=== PATIENT | male | born 1950 | race Caucasian/White ===

== ENCOUNTER 2017-10-07 09:00 | Outpatient (RCR) | payer MEDICARE, OTHER ==
[2017-07-11 11:07] VITALS: BP 130/86
[2017-07-11 11:08] VITALS: BP 122/80
--- NOTE | 2017-07-11 11:48 | CARDIAC REHAB PLAN OF CARE ---
Physician: Joslyn Marsh BANKRUPTCY LAW SPECIALIST Patient is being seen: Gerald Teresa Medical Diagnosis: Old AL Date of Initial Evaluation: July 11, 2017 SHORT TERM GOALS Short Term Goals Due Date: 08/10/17 Short Term Goals: 67 year old male phase II patient comes to cardiac rehab after suffering a TIA. Patient also has a history of two prior AL's (1998 & 2007) with one stent placed each time. Patient is 6'0", 210 pounds and has recently been diagnosed a pre-diabetic, other health history includes hypertension and hyperlipidemia diagnosed in 1998. Orthopedically the patient does not have any restriction to any of the exercise required for cardiac rehab although the patient has a left hip replacement. Goals established for this patient are to achieve 150 minutes each week of cardio exercise at a moderate level (3.0-6.0 Mets), followed by weight resistance at least twice a week. Patient will need to follow the DASH diet or Mediterranean Diet with proper portions. Short Term Goals Met: Short Term Goals Not Met Due To: PRINCIPAL ARCHITECTURAL FIRM GOALS Arabic Translator Goal Due Date: 09/10/17 Arabic Translator Goals: prison goals for patient are to remain consistent with cardio exercise each week, along with weight resistance. Patient also needs to remain consistent with healthy meal choices. [facility] Goals Met: Arabic Translator Goals Not Met Due To: PATIENT'S GOALS Patient Goals Due Date: 08/10/17 Patient Goals: Patient goals are to improve overall health and to decrease chances of future AL or Stroke. Patient Goals Met: Patient Goals Not Met Due To: Cardiac Rehabilitation Plan of Care Comment: Cardiac rehab staff will monitor, record, and evaluate vitals, ECG, and exercise results to provide the best plan of care for the patient throughout the 36 visit phase II program. CR staff will educate and motivate the patient during visits for rehab. SHANTA
[2017-07-13 12:57] VITALS: BP 136/84
[2017-07-13 12:58] VITALS: BP 128/78
[2017-07-25 13:17] VITALS: BP_SYST 120; BP_SYST 122; BP_DIAS 64; BP_DIAS 80
[2017-07-27 13:00] VITALS: BP 126/84
[2017-07-27 13:02] VITALS: BP 118/82
[2017-07-29 17:27] VITALS: BP 120/80
[2017-07-29 17:28] VITALS: BP 124/84
[2017-08-01 18:09] VITALS: BP 138/82
[2017-08-01 18:10] VITALS: BP 122/82
[2017-08-03 13:18] VITALS: BP_SYST 130; BP_SYST 132; BP_DIAS 68; BP_DIAS 84
[2017-08-12 13:39] VITALS: BP 122/72
[2017-08-12 13:40] VITALS: BP 114/76
--- NOTE | 2017-08-12 17:30 | CARDIAC REHAB PLAN OF CARE ---
Physician: Joslyn BAGLEY Patient is being seen: Gerald Moore Medical Diagnosis: VT, Stent x 2 Date of Initial Evaluation: 07/11/2017 SHORT TERM GOALS Short Term Goals Due Date: 09/12/17 Short Term Goals: 67 year old male phase II patient comes to cardiac rehab after suffering a TIA. Patient also has a history of two prior VT's (1998 & 2007) with one stent placed each time. Patient is 6'0", 210 pounds and has recently been diagnosed a pre-diabetic, other health history includes hypertension and hyperlipidemia diagnosed in 1998. Orthopedically the patient does not have any restriction to any of the exercise required for cardiac rehab although the patient has a left hip replacement. Goals established for this patient are to achieve 150 minutes each week of cardio exercise at a moderate level (3.0-6.0 Mets), followed by weight resistance at least twice a week. Patient will need to follow the DASH diet or Mediterranean Diet with proper portions. Short Term Goals Met: Patient has made 9 visits for cardiac rehab and tolerates 35-40 minutes of moderate level cardio. Patient also completes an 8 pound dumbbell upper body workout. During exercise SPO2 levels are maintained in the 90's on room air, and the homoeopath shows a NSR-ST with an occasional PVC and rates of 97-109. 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 Patient will continue to eat heart healthy meals and snacks, with portion control. Autopsy Pathologist Goals Met: Prison Goals Not Met Due To: PATIENT'S GOALS Patient Goals Due Date: 09/12/17 Patient Goals: Patient goals are to improve cardiac and overall health with exercise and diet changes. Patient wants to extend life and remain active. Patient Goals Met: Patient Goals Not Met Due To: Cardiac Rehabilitation Plan of Care Comment: Cardiac rehab staff will monitor, record, and evaluate vitals, ECG, and exercise results to provide the best plan of care for the patient during the 36 visit phase II program. CR staff will educate and motivate the patient during visits for rehab. SHANTA
[2017-08-22 13:24] VITALS: BP 142/84
[2017-08-22 13:25] VITALS: BP 132/82
[2017-08-24 13:25] VITALS: BP 142/66
[2017-08-24 13:26] VITALS: BP 122/76
[2017-08-26 17:59] VITALS: BP_SYST 132; BP_SYST 138; BP_DIAS 80; BP_DIAS 84
[2017-09-12 12:52] VITALS: BP 117/74
[2017-09-12 12:53] VITALS: BP 118/74
--- NOTE | 2017-09-12 13:20 | CARDIAC REHAB PLAN OF CARE ---
Physician: Joslyn BAGLEY Patient is being seen: Gerald Moore Medical Diagnosis: Old IL, & TIA, Stent x 2 Date of Initial Evaluation: 07/11/17 SHORT TERM GOALS Short Term Goals Due Date: 10/12/17 Short Term Goals: 67 year old male phase II patient comes to cardiac rehab after suffering a TIA. Patient also has a history of two prior IL's (1998 & 2007) with one stent placed each time. Patient is 6'0", 210 pounds and has recently been diagnosed a pre-diabetic, other health history includes hypertension and hyperlipidemia diagnosed in 1998. Orthopedically the patient does not have any restriction to any of the exercise required for cardiac rehab although the patient has a left hip replacement. Goals established for this patient are to achieve 150 minutes each week of cardio exercise at a moderate level (3.0-6.0 Mets), followed by weight resistance at least twice a week. Patient will need to follow the DASH diet or Mediterranean Diet with proper portions. Short Term Goals Met: Patient has made 14 visits for cardiac rehab and tolerates 30-45 minutes of a moderate level of cardio exercise along with weight resistance with 9 pound dumbbells. During exercise SPO2 levels are maintained in the 90's on room air and the satellite project site monitor shows a NSR-ST with an occasional PVC and rates of 90-109. 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 [facility] Goals Met: [facility] Goals Not Met Due To: PATIENT'S GOALS Patient Goals Due Date: 10/12/17 Patient Goals: Patient goals are to improve cardiac and overall healthy with consitent exercise, improved diet, and lose some weight. Patient Goals Met: Patient Goals Not Met Due To: Cardiac Rehabilitation Plan of Care Comment: Cardiac rehab staff will monitor, record and evaluate vitals, ECG, and exercise results to provide the best plan of care for the patient throughout the 36 visit phase II program. CR staff will motivate and educate the patient during visits for rehab. SHANTA
[2017-09-14 13:52] VITALS: BP 118/80
[2017-09-14 13:53] VITALS: BP 136/78
[2017-09-16 12:53] VITALS: BP 132/80
[2017-09-16 12:55] VITALS: BP 130/80
[2017-10-03 13:29] VITALS: BP 144/78
[2017-10-03 13:30] VITALS: BP 132/84
[2017-10-05 12:50] VITALS: BP 132/78
[2017-10-05 12:51] VITALS: BP 114/78
[~2017-10-07 09:00] MED LIST: ASPI81TA94 PO; ATR10 PO; CARV25TA77 PO; DOC100 PO; FLUT16SP19; LISI5TAB25 PO; OXYC1TAB54 PO; PANT40TA65 PO; PER PO; PHENA200 PO; TAM4 PO; TOLT4CAP13 PO
[2017-10-07 18:18] VITALS: BP 116/72
[2017-10-07 18:19] VITALS: BP 124/80
== END 2017-10-09 ==
LOC: CARD 09:00
PROVIDERS: ATTEND Nurse Practitioner Family
DX: I25.2 Old myocardial infarction (principal); I70.90 Unspecified atherosclerosis; E11.9 Type 2 diabetes mellitus without complications; I10 Essential (primary) hypertension; G45.9 Transient cerebral ischemic attack, unspecified; E78.5 Hyperlipidemia, unspecified; Z95.5 Presence of coronary angioplasty implant and graft; Z96.642 Presence of left artificial hip joint; Z86.73 Personal history of transient ischemic attack (TIA), and cerebral infarction without residual deficits
CPT/HCPCS: 93798

== ENCOUNTER → 2017-11-26 | Outpatient (CLI) | payer MEDICARE, OTHER ==
[2017-11-26 11:12] LABS: LDL CHOLESTEROL 66 mg/dl
== END ==
LOC: LAB 10:10
PROVIDERS: ATTEND Internal Medicine Cardiovascular Disease
DX: I25.10 Atherosclerotic heart disease of native coronary artery without angina pectoris (principal)
CPT/HCPCS: 36415; 82040; 82247; 82310; 82374; 82435; 82465; 82565; 82947; 83718; 84075; 84132; 84155; 84295; 84450; 84460; 84478; 84520

== ENCOUNTER → 2017-11-29 | Outpatient (CLI) | payer MEDICARE, OTHER ==
--- NOTE | 2017-11-29 11:51 | EKG ---
FACILITY: PATIENT NAME: DAVID SHAFFER : [id number] MR: [id number] V: [id number] EXAM DATE: ORDERING PHYSICIAN: NAHID GARG TECHNOLOGIST: FABIEN Test Reason : I10, I49.9 Blood Pressure : / mmHG Vent. Rate : 054 BPM Atrial Rate : 054 BPM P-R Int : 170 ms QRS Dur : 090 ms QT Int : 400 ms P-R-T Axes : 065 003 034 degrees QTc Int : 379 ms Sinus bradycardia Possible left atrial enlargement Minimal voltage criteria for LVH, may be normal variant Hint of delta wave seen in limb leads Borderline ECG Confirmed by KARI CUELLAR ([id number]) on 11/29/2017 5:05:32 PM Referred By: BRITANY Confirmed By:KARI CUELLAR
== END ==
LOC: RESP 11:36
PROVIDERS: ATTEND Nurse Practitioner Family
DX: R94.31 Abnormal electrocardiogram [ECG] [EKG] (principal)
CPT/HCPCS: 36415; 82550; 93005

== ENCOUNTER 2018-03-28 12:14 | Outpatient (RCR) | payer MEDICARE, OTHER ==
[2018-03-28 12:57] LABS: LDL CHOLESTEROL 67 mg/dl
--- NOTE | 2018-03-29 10:36 | EKG ---
FACILITY: [facility] - [place] PATIENT NAME: DAVID SHAFFER : [id number] MR: [id number] V: [id number] EXAM DATE: ORDERING PHYSICIAN: ANGEL PITTS TECHNOLOGIST: NATE Test Reason : POST STRESS TEST Blood Pressure : / mmHG Vent. Rate : 069 BPM Atrial Rate : 069 BPM P-R Int : 172 ms QRS Dur : 096 ms QT Int : 386 ms P-R-T Axes : 054 -24 -07 degrees QTc Int : 413 ms Normal sinus rhythm Nonspecific ST abnormality Abnormal ECG When compared with ECG of 29-NOV-2017 11:48, No significant change was found Confirmed by YUKO PARKER ([id number]) on 03/29/2018 11:26:37 AM Referred By: HONG Confirmed By:YUKO PARKER
--- NOTE | 2018-03-29 15:32 | RADIOLOGY IMAGING REPORT ---
FACILITY: [facility] - [place] PATIENT NAME: Albert Beaulieu : 1950 MR: [id number] V: [id number] EXAM DATE: ORDERING PHYSICIAN: MYKEL HOBBS TECHNOLOGIST: Location: [facility] [place] Patient: Albert Beaulieu : 1950 Visit/Account:[id number] Date of Sevice: 03/29/2018 EXAMINATION: Single Isotope SPECT Imaging with Exercise and Gated SPECT Imaging DATE OF EXAMINATION: 03/29/2018 DATE OF INTERPRETATION: 03/29/2018 REQUESTING PHYSICIAN: MYKEL HOBBS INDICATION: The patient is a 67-year-old male evaluated for CAD/angina. PROCEDURE: After informed consent the patient received an intravenous injection of 11.8 mCi of Tc-9 9m sestamibi followed at the appropriate time interval by rest imaging. The patient then exercised a ccording to the standard Robert protocol for 8:10 minutes achieving 9 METS. Resting heart rate was 61 bpm with a peak heart rate of 146 bpm which is 96 % of maximal predicted heart rate for age. Blood pressure at rest was 155 / 87; blood pressure during exercise was 216 / 89. There was no chest pain during exercise. Exercise was discontinued because of fatigue. Baseline EKG demonstrates normal si nus rhythm, left anterior fascicular block. There were no EKG changes of ischemia at peak exercise. Approximately one minute and 30 seconds prior to the termination of exercise, the patient received a n intravenous injection of 30.1 mCi of Tc-99m sestamibi followed by stress imaging. RAW DATA: Examination of the summed raw data revealed a good quality study. MYOCARDIAL PERFUSION: The tomographic images demonstrate normal perfusion, no evidence of infarct or ischemia. GATED IMAGES: The gated images demonstrate normal wall motion, ejection fraction 56% IMPRESSION: 1. Good quality study 2. Normal myocardial perfusion scan. 3. Normal LV systolic function; LVEF 56%. 4. Based on the results of this exam, the patient appears to be at low risk for future cardiovascular events but remains intermediate risk due to history of CAD. Report Dictated By: Logan Epstein at 03/29/2018 3:23 PM Report E-Signed By: Logan Epstein at 03/29/2018 3:27 PM WSN:[id number]
--- NOTE | 2018-03-30 17:02 | RT STRESS TEST REPORT ---
FACILITY: [facility] - [place] PATIENT NAME: DAVID SHAFFER : [id number] MR: [id number] V: [id number] EXAM DATE: ORDERING PHYSICIAN: MYKEL HOBBS TECHNOLOGIST: Vahid Acquisition Time: 2018-03-29 09:35:14 Total Exercise Time: 00:08:10 Test Indications: Screening for CAD Medications: See nuclear med sheet Protocol: HELENA 2 Max HR: 146 BPM 96% of Pred: 151 BPM Max BP: 216/089 mmHG Max Work Load: 10.1 METS No ischemic changes noted during the test He did have frequent PVCs during the test that resolved during the recovery R.A. O2 sats dropped to 85% and was placed on O2, 2 litres during the test that kept sats. above 88 % During recovery O2 sats improved to above 90% on R.A. Imp: No ischemic changes on the EKG, however had hypoxia and frequent PVCs during the test Consider Pulmonary evaluation Confirmed by ANGEL PITTS ([id number]) on 03/30/2018 5:02:07 PM Referred By: Overread By: ANGEL PITTS
== END 2018-05-02 ==
LOC: NUC 12:14 → EDSTATUS 03-29 09:00
PROVIDERS: ATTEND Internal Medicine Cardiovascular Disease
DX: I25.10 Atherosclerotic heart disease of native coronary artery without angina pectoris (principal); R94.31 Abnormal electrocardiogram [ECG] [EKG]; R09.02 Hypoxemia
CPT/HCPCS: 36415; 78452; 93005; 93017; A9500; 82040; 82247; 82310; 82374; 82435; 82465; 82565; 82947; 83718; 84075; 84132; 84155; 84295; 84450; 84460; 84478; 84520

== ENCOUNTER → 2018-05-28 | Outpatient (CLI) | payer MEDICARE, OTHER ==
[2018-05-28 10:39] LABS: PLATELET COUNT, AUTOMATED 153 K/uL (150-450)
[2018-05-28 11:01] LABS: LDL CHOLESTEROL 66 mg/dl
== END ==
LOC: LAB 10:24
PROVIDERS: ATTEND Nurse Practitioner Family
DX: I10 Essential (primary) hypertension (principal); R73.01 Impaired fasting glucose; E78.2 Mixed hyperlipidemia; I25.2 Old myocardial infarction; Z98.61 Coronary angioplasty status
CPT/HCPCS: 36415; 82040; 82247; 82310; 82374; 82435; 82465; 82565; 82947; 83036; 83718; 84075; 84132; 84155; 84295; 84450; 84460; 84478; 84520; 85025

== ENCOUNTER → 2018-08-14 | Outpatient (CLI) | payer MEDICARE, OTHER | LOC: LAB 16:18 | PROVIDERS: ATTEND Anesthesiology | DX: Z01.812 Encounter for preprocedural laboratory examination (principal); M25.561 Pain in right knee | CPT/HCPCS: 81001 ==

== ENCOUNTER 2018-09-01 00:33 | Observation (INO) | payer MEDICARE, OTHER ==
[2018-08-31 14:22] LABS: INR 1.01
--- NOTE | 2018-08-31 16:39 | RADIOLOGY IMAGING REPORT ---
FACILITY: [facility] PATIENT NAME: Albert Beaulieu : 1950 MR: [id number] V: [id number] EXAM DATE: ORDERING PHYSICIAN: ELISABETH QUEVEDO TECHNOLOGIST: Location: [facility] Patient: Albert Beaulieu : 1950 Visit/Account:[id number] Date of Sevice: 08/30/2018 Study: LEGS BILAT STANDING HIPS-ANKLE Indication: Assess leg length Comparison study: None available Findings: Upright plain films of the lower extremities with a superimposed ruler demonstrates the pat ient is status post left total hip replacement. The left femur measures 51.67 cm as measured from the top of the total hip arthroplasty acetabular co mponent to the medial femoral condyle articular surface. The left tibia measures 40.25 cm from the medial tibial plateau to the tibial plafond and. The left lower extremity measures 92.27 cm as measured from the top of the left hip acetabular compon ent to the tibial plafond. The right femur measures 51.34 cm from the superior aspect of the femoral head to the medial femoral condyle articular surface. The right tibia measures 40.12 cm from the medial tibial plateau to the tibial plafond. The right lower extremity measures 91.59 cm from the top of the femoral head to the tibial plafond. There is no evidence of soft tissue abnormality. There is no evidence of acute bony abnormality. IMPRESSION: Leg length measurements as described above. Report Dictated By: Robert Brown at 08/31/2018 4:23 PM Report E-Signed By: Robert Brown at 08/31/2018 4:33 PM WSN:[id number]
[2018-09-01] VITALS (12 sets, daily range): BP systolic 117–142; BP diastolic 73–90
[~2018-09-01] VITALS: Ht 180.3 cm; Wt 102.1 kg
[~2018-09-01 00:33] MED LIST changes: +AMLO-125 PO; +ASPI-1471 PO; +ATOR20TA22 PO; +CHOL10005 PO; +DOXA4TAB58 PO; +LISI-362 PO; +UBID100C48 PO
[2018-09-01] MEDS ORDERED: fentaNYL CITR 250 MCG/5 ML AMP ONE (08:44)
[2018-09-01] MEDS ORDERED: ONDANSETRON 4 MG/2 ML VIAL ONE (08:45)
[2018-09-01] MEDS ORDERED: LIDOCAINE MPF 1% 5 ML VIAL ONE ×2 (08:45→10:26)
[2018-09-01] MEDS ORDERED: DEXAMETHASONE SOD 4 MG/ML VIAL ONE (08:45)
[2018-09-01] MEDS ORDERED: PROPOFOL EMUL(*) 10MG/ML 20 ML 20 ML ONE (08:45)
[2018-09-01] MEDS ORDERED: KETAMINE HCL 200 MG/20 ML MDV ONE (08:48)
[2018-09-01] MEDS ORDERED: SUGAMMADEX SOD 200 MG/2 ML SDV ONE (10:07)
[2018-09-01] MEDS ORDERED: CELECOXIB 200 MG CAP PO ONE (10:15)
[2018-09-01] MEDS ORDERED: VANCOMYCIN(*) 1 GM VIAL 1 GM, VANCOMYCIN (*) 0.5 GM VIAL 0.5 GM in NS(*) 0.9% 250 ML BA... IVPB ONE (10:15)
[2018-09-01] MEDS ORDERED: LIDOCAINE/SOD BICARB 8.4% SYR ID ONE (10:15)
[2018-09-01] MEDS ORDERED: ROPIVACAINE/EPI/CLONIDINE/KET 50 ML SYRINGE INJ ONE (10:15)
[2018-09-01] MEDS ORDERED: TRANEXAMIC AC 1000 MG/10ML SDV 1,000 MG in DEXTROSE 5% 50 ML BAG 50 ML IV ONE (10:15)
[2018-09-01] MEDS ORDERED: MIDAZOLAM 2 MG/2 ML VIAL IVP PRN (10:15)
[2018-09-01] MEDS ORDERED: PREGABALIN 75 MG CAPSULE PO ONE (10:15)
[2018-09-01] MEDS ORDERED: NORMOSOL R SOLN(*) 1000 ML BAG 1,000 ML IV PRN (10:15)
[2018-09-01] MEDS ORDERED: ACETAMINOPHEN 500 MG TAB PO ONE (10:15)
[2018-09-01] MEDS ORDERED: FAMOTIDINE 20 MG TAB PO ONE (10:15)
[2018-09-01] MEDS ORDERED: EPINEPHrine HCL 1 MG/ML AMP ONE (10:20)
[2018-09-01] MEDS ORDERED: ROPIVACAINE 0.5% 20 ML VIAL ONE (10:21)
[2018-09-01] MEDS ORDERED: NS 0.9% 20 ML SDV 40 ML ONE (10:21)
[2018-09-01] MEDS ORDERED: LIDOCAINE 2% JELLY 5 ML TUBE ONE (11:45)
[2018-09-01] MEDS ORDERED: ePHEDrine 25 MG/5 ML DISP.SYR IVP ONE (12:28)
[2018-09-01] MEDS ORDERED: MORPHINE SULFATE 30 MG PCA IV PRN (14:55)
[2018-09-01] MEDS ORDERED: PCA LOCKBOX KEYS XX PRN (14:55)
[2018-09-01] MEDS ORDERED: PROMETHAZINE 25 MG/ML 1 ML AMP IVP PRN (14:55)
[2018-09-01] MEDS ORDERED: MAGNESIUM CITRATE 300 ML BTL PO PRN (14:55)
[2018-09-01] MEDS ORDERED: FLUSH 10 ML SYR IVP PRN (14:55)
[2018-09-01] MEDS ORDERED: diphenhydrAMINE 25 MG CAP PO PRN (14:55)
[2018-09-01] MEDS ORDERED: KCL/D5LR 20 MEQ/1000 ML PREMIX 1,000 ML IV PRN (14:55)
[2018-09-01] MEDS ORDERED: ACETAMINOPHEN 500 MG TAB PO PRN (14:55)
[2018-09-01] MEDS ORDERED: ONDANSETRON 4 MG/2 ML VIAL IVP PRN (14:55)
[2018-09-01] MEDS ORDERED: NALOXONE HCL 0.4 MG/ML VIAL IVP PRN (14:55)
[2018-09-01] MEDS ORDERED: CHOL500051 PO (15:57)
--- NOTE | 2018-09-01 16:21 | Hospitalist Consultation ---
History of Present Illness Requesting Physician Dr. George Reason for Consult Medical Management Chief Complaint s/p right unicompartmental knee replacement History of Present Illness He was admitted s/p right unicompartmental knee replacement. It is reported the surgery went well and without complication. History Problems: (1) History of MS (myocardial infarction) Status: Resolved Comment: 2007 (2) CAD (coronary artery disease) Status: Chronic (3) GERD (gastroesophageal reflux disease) Status: Chronic (4) Hyperlipidemia Status: Chronic (5) Hypertension Status: Chronic (6) Transient ischemic attack Status: Resolved Comment: 06/2017 Home Meds Reported Medications Cholecalciferol (Vitamin D3) (Vitamin D) 5,000 Unit Capsule, 5000 UNIT PO DAILY 09/01/18 Ubidecarenone (COQ-10) 100 Mg Capsule, 100 MG PO QAM, CAPSULE 08/24/18 Doxazosin Mesylate (DOXAZOSIN MESYLATE) 4 Mg Tablet, 4 MG PO QAM 08/24/18 Atorvastatin Calcium (LIPITOR) 20 Mg Tablet, 1 TAB PO QAM, TAB 08/24/18 Amlodipine Besylate (AMLODIPINE BESYLATE) 5 Mg Tablet, 1 TAB PO QAM, TAB 08/24/18 Aspirin (ASPIR 81) 81 Mg Tablet.dr, 81 MG PO BID, TAB 08/24/18 Lisinopril (LISINOPRIL) 10 Mg Tablet, 10 MG PO BID, TAB 08/24/18 Discontinued Reported Medications Cholecalciferol (Vitamin D3) (VITAMIN D3) 1,000 Unit Tablet, 5000 UNIT PO QAM, TAB 08/24/18 Allergies: Coded Allergies: hydrochlorothiazide (Verified Allergy, Mild, rash, 08/24/18) Patient History: FH: Alzheimers disease FATHER, FH: prostate cancer FATHER, FH: stroke MOTHER, FHx: coronary artery disease MOTHER, Hx Smoking: Yes (1 ppd for 15 years quit age 38) Smoking Status: Former Smoker Caffeine Intake: Tea Caffeine/Cups Per Day: 2 Hx Alcohol Use: Yes Hx Substance Use Disorder: No Social Drug Use: Never Review of Systems All Systems Reviewed/Normal: Yes, Except as Noted Exam Vital Signs Vital Signs Date Time Temp Pulse Resp B/P (MAP) Pulse Ox O2 Delivery O2 Flow Rate FiO2 09/01/18 15:40 97.7 62 12 130/84 (99) 92 Nasal Cannula 4.0 General Appearance: Alert, Awake, No Acute Distress, Afebrile Neuro: No Gross deficits Cardiovascular: Regular Rate and Rhythm Respiratory: No Respiratory Distress, Clear to Auscultation GI: Abd Soft and Non-Tender Psych: Alert & Oriented X3, Appropriate Mood & Affect Medical Decision Making Data Points Result Diagram: 09/01/18 1499 Assessment and Plan Problems: (1) S/P right unicompartmental knee replacement Status: Acute Assessment & Plan: Followed by Dr. George. He will be placed on Aspirin for DVT prophylaxis. He has no history of DVT or PE. (2) CAD (coronary artery disease) Status: Chronic Assessment & Plan: He is on chronic treatment with baby aspirin. This will be held while on full dose aspirin. He has history of two cardiac stents. Had cardiac clearance prior to surgery. (3) Hypertension Status: Chronic Assessment & Plan: He is on chronic treatment with Lisinopril, Amlodipine and Doxazosin. The Lisinopril and Amlodipine have been restarted with hold parameters. (4) Hyperlipidemia Status: Chronic Assessment & Plan: He is on chronic treatment with Atorvastatin. (5) Transient ischemic attack Status: Resolved Assessment & Plan: In 2017. Resolved. No deficits. (6) History of MS (myocardial infarction) Status: Resolved Venous Thromboembolism Antithrombotics Is Pt On Any Antithrombotics?: No JENNIFER SOSA Sep 01, 2018 16:21
--- NOTE | 2018-09-01 17:00 | NUR ---
Physical Therapy Impression PT eval completed. Pt tolerated ther ex in supine, followed by transfer trng and ambulation to/from BR with VS in safe range and good pain management reported. Pt returned to bed with SBA and placed in CPM with CGA. Pt educated on self progression of flexion as tolerated and currently at 0-40 degrees upon PT completion. Physical Therapy Goals 1. Pt to be modified indep with all bed mobility and supine to/from sit transfers 2. Pt to be modified indep with all sit to/from stand transfers 3. Pt to ambulate 100' with least restrictive device and modified indep/SBA 4. Pt to areli up/down step with rail x 2 and SBA/Modified indep Patient's Goals
--- NOTE | 2018-09-01 17:25 | RADIOLOGY IMAGING REPORT ---
FACILITY: [facility] PATIENT NAME: Albert Beaulieu : 1950 MR: [id number] V: [id number] EXAM DATE: ORDERING PHYSICIAN: ELISABETH QUEVEDO TECHNOLOGIST: [place] [facility] [place] Patient: Albert Beaulieu : 1950 Visit/Account:[id number] Date of Sevice: 09/01/2018 Study: KNEE LIMITED RIGHT Indication: Postop Comparison study: None available Findings: AP and lateral views of the right knee demonstrates the patient is status post replacement of the medial femoral tibial articulation of the right knee. There are postsurgical changes present. There is approximate anatomic alignment. There is no evidence of acute bony abnormality. The metallic components of the partial knee replacement are unremarkable in appearance. IMPRESSION: Status post replacement of the medial femoral tibial articulation of the right knee. Report Dictated By: Robert Brown at 09/01/2018 5:20 PM Report E-Signed By: Robert Brown at 09/01/2018 5:22 PM WSN:[id number]
--- NOTE | 2018-09-01 19:58 | OPERATIVE REPORT 1 ---
EVENT DATE: September 01, 2018 SURGEON: Emmett George MD ANESTHESIOLOGIST: Louie Umaña MD ANESTHESIA: General plus adductor canal and iPACK block. ACCOUNTING CONSULTANT: Iker Liz PA-C PREOPERATIVE DIAGNOSIS Right knee medial compartment arthritis. POSTOPERATIVE DIAGNOSIS Right knee medial compartment arthritis. PROCEDURE PERFORMED Right medial compartment arthroplasty (40711). ESTIMATED BLOOD LOSS Minimal. INTRAVENOUS FLUIDS Crystalloid 1600, no colloid. TOURNIQUET TIME 73 SPECIMENS No specimens. COMPLICATIONS No complications. IMPLANTS USED [place] large femoral component with a size E right tibial component and a size 3 insert. SUMMARY OF PROCEDURE The patient was brought into the operating room and placed on the OR table in the supine position. Under light sedation, he was given his adductor canal and iPACK block by Dr. Umaña under ultrasound guidance. He was then given a light general anesthetic. His right lower extremity was prepped and draped in the usual sterile fashion using the thigh harris in the abducted position. We exsanguinated the limb and inflated the tourniquet. A medial parapatellar incision was made, deepened through skin and subcutaneous tissue. I then incised the capsule, and the fluid was clear. There was actually fairly small amounts of fluid. We exposed the tibial metaphyseal flare anteriorly and removed the anterior portion of the medial meniscus as well as some of the fat pad. I inspected the lateral compartment. There was no evidence of significant cartilage damage on the lateral condyle. We inspected for the ACL, and it looked like it was intact. In fact, it was a very robust tendon. We then removed all of the osteophytes along the medial margin of the medial condyle as well as the elements of the tibial osteophytes using an osteotome and rongeur as necessary. I then removed some of the osteophytes along the medial notch. The lateral aspect of the notch was clean. At this point, we then checked different spoons. It looked like a large fit best, size 2. We set up the tibial guide with the size 4G clamp because he is a rather large individual and then positioned the cutting guide. We made our initial sizable cut, followed by the transverse cut, removing the wafer and measuring it. It looked like it was most compatible with a size E. We then proceeded to felix the midline of the condyle. We obtained intramedullary access for the renato having cut the posterior aspect of the femoral condyle already. Having cut the posterior elements of the condyle with the drill holes placed, we then were ready for our spigot. The zero spigot was used, and we milled in the standard fashion and then checked our extension and flexion gaps. The flexion gap was only 2, which was really too small. I checked for any loose material that could of elevated the implant, but it really was not there, so I did cut a little bit lower on the tibia and cleaned out the tissue a bit better. He had extremely hard bone, and I think the blade might have been skived up a little bit during the course of our initial cut. Having done this, we were able to get a size 3, and the in extension it was a zero. We milled with a 3 spigot, checked again, and it was one difference, so we went to a 4 spigot and then did our final milling, at which point a 3 fit congruently in extension and flexion. The posterior milling was done, and then the impingement reamer, followed by beveling with the rongeur as necessary and cleaning out the joint. We trialed again after preparing the keel and then made our drill holes along the adjacent margins of the keel as well as into the femoral component and then prepared for our final implant. Cement was mixed, injected into the keel hole as well as into the drill holes for the femur. We additionally placed some cement on the backside of the femoral component as well as onto the bone over the keel and then inserted the tibial component first, removed the excess cement, followed by placement of the femoral component, and then the trial size 3. It was held at 45 degrees under compression while we had removed excess cement with a [place] retractor. After everything was polymerized, we checked for any residual cement, removed what little there was, and trialed again. With the trial [address], it came to full extension quite easily. In max flexion, the mobile bearing was just barely touching the wall, but then immediately moved away from it when we moved from max flexion and was sitting very well in extension. There was no tendency to subluxate. It was actually rather difficult to insert the implant, but yet there was adequate play, and he came to extension very easily. We removed the trial implant and placed the size 3 final implant, repeated the irrigation before doing so, injected local anesthetic posteriorly and along the periphery and the periosteum, and subsequent to this, we began closure. The tourniquet was deflated. Unipolar cautery was used where necessary for hemostasis, followed by closure with a #1 Vicryl for the capsular closure, repeat irrigation, followed by 3-0 Vicryl for the subcutaneous closure, and then 4-0 Monocryl for the subcuticular closure with a Dermabond Prineo strip applied. He was given a dry, sterile dressing. He was awakened and transferred to the recovery area in stable condition. SHANTA
[2018-09-01] MEDS: LISINOPRIL 10 MG TAB PO SCH (20:15)
[2018-09-02] VITALS: BP 117/67
[2018-09-02 04:00] VITALS: BP 135/71
[2018-09-02 06:59] VITALS: BP 134/70
[2018-09-02] MEDS ORDERED: OXYC5TAB38 PO (08:56)
[2018-09-02] MEDS ORDERED: amLODIPine BESYL(*) 5 MG TAB PO SCH (09:00)
[2018-09-02] MEDS ORDERED: ATORVASTATIN 10 MG TAB PO SCH (09:00)
[2018-09-02] MEDS ORDERED: ASPIRIN 325 MG ENTERIC COATED PO SCH (09:00)
[2018-09-02 09:04] VITALS: Ht 180.3 cm; Wt 102.1 kg
[2018-09-02] MEDS ORDERED: ASPI-764 PO (10:30)
[2018-09-02] MEDS: LISINOPRIL 10 MG TAB PO SCH (10:31)
--- NOTE | 2018-09-02 10:35 | Hospitalist Progress Note ---
Subjective Progress Notes Subjective No cp/sob. Physical Exam Vital Signs Date Time Temp Pulse Resp B/P (MAP) Pulse Ox O2 Delivery O2 Flow Rate FiO2 09/02/18 06:59 98.0 60 14 134/70 (91) 89 Room Air 09/02/18 06:00 2.0 Intake and Output 09/02/18 07:00 Intake Total 2845 ml Balance 2845 ml Intake Oral 930 ml IV Total 1915 ml # Voids 4 General Appearance: Alert, Awake, No Acute Distress Respiratory: Clear to Auscultation Result Diagram: 09/01/18 1438 Assessment and Plan Problems: (1) S/P right unicompartmental knee replacement Status: Acute Assessment & Plan: Followed by Dr. George. He will be placed on Aspirin for DVT prophylaxis. He has no history of DVT or PE. (2) Hypoxia Status: Acute Assessment & Plan: Secondary to Stephenson's elevation, recent anesthesia and narcotics. Clinical suspicion for pneumonia or PE is low. He might need to go home with O2. If he does, he has been told to get a room air saturation checked to see if he still needs it in a couple of days. (3) CAD (coronary artery disease) Status: Chronic Assessment & Plan: He is on chronic treatment with aspirin 81mg and atorvastatin. He has history of two cardiac stents. Had cardiac clearance prior to surgery. He will resume aspirin 81mg in 30 days. (4) Hypertension Status: Chronic Assessment & Plan: He is on chronic treatment with Lisinopril, Amlodipine and Doxazosin. The Lisinopril and Amlodipine have been restarted with hold parameters. (5) Transient ischemic attack Status: Resolved Assessment & Plan: In 2017. Resolved. No deficits. Exam Sepsis Risk: No Definite Risk DAREN DOMINGUEZ MD Sep 02, 2018 10:34
== END 2018-09-02 12:20 | disposition home or self-care (01) ==
LOC: OR 00:33 → MED 15:35
PROVIDERS: ADMIT Orthopaedic Surgery Hand Surgery; ATTEND Orthopaedic Surgery Hand Surgery
DX: M17.11 Unilateral primary osteoarthritis, right knee (principal); I25.10 Atherosclerotic heart disease of native coronary artery without angina pectoris; K21.9 Gastro-esophageal reflux disease without esophagitis; E78.5 Hyperlipidemia, unspecified; I10 Essential (primary) hypertension; R09.02 Hypoxemia; I25.2 Old myocardial infarction; Z88.8 Allergy status to other drugs, medicaments and biological substances; Z86.73 Personal history of transient ischemic attack (TIA), and cerebral infarction without residual deficits; T70.29XA Other effects of high altitude, initial encounter; T41.205A Adverse effect of unspecified general anesthetics, initial encounter; Y92.230 Patient room in hospital as the place of occurrence of the external cause; T40.605A Adverse effect of unspecified narcotics, initial encounter
CPT/HCPCS: 27446; 36415; 73560; 76942; 77073; 85014; 85018; 85610; 86850; 86900; 86901; 97116; 97161; 97530; A9270; C1713; C1776; G0378; J0171; J1100; J2001; J2250; J2405; J2704; J2795; J3010; J3370; J3490; J7050; J7060

== ENCOUNTER → 2018-10-01 | Outpatient (CLI) | payer MEDICARE, OTHER ==
[2018-09-02 09:04] VITALS: BMI 31.4
[~2018-10-01] MED LIST changes: +ASPI-764 PO; +CHOL500051 PO; +OXYC5TAB38 PO
[2018-10-01 09:21] LABS: PLATELET COUNT, AUTOMATED 157 K/uL (150-450)
[2018-10-01 09:34] LABS: LDL CHOLESTEROL 54 mg/dl
== END ==
LOC: LAB 08:48
PROVIDERS: ATTEND Nurse Practitioner Family
DX: R73.01 Impaired fasting glucose (principal); E78.2 Mixed hyperlipidemia; I25.2 Old myocardial infarction; I10 Essential (primary) hypertension; I25.10 Atherosclerotic heart disease of native coronary artery without angina pectoris; Z98.61 Coronary angioplasty status
CPT/HCPCS: 36415; 82040; 82247; 82310; 82374; 82435; 82465; 82565; 82947; 83036; 83718; 84075; 84132; 84155; 84295; 84450; 84460; 84478; 84520; 85025

== ENCOUNTER → 2018-10-17 | Outpatient (CLI) | payer MEDICARE, OTHER ==
[2018-09-02 09:04] VITALS: BMI 31.4
--- NOTE | 2018-10-17 16:07 | RADIOLOGY IMAGING REPORT ---
[place] [facility] [place] Albert Beaulieu : 1950 MR: [id number] V: [id number] EXAM DATE: ORDERING PHYSICIAN: ELISABETH QUEVEDO TECHNOLOGIST: Location: [facility] Patient: Albert Beaulieu : 1950 Visit/Account:[id number] Date of Sevice: 10/17/2018 Exam type: US VENOUS LOWER EXT RT History: Right lower leg pain and swelling, knee replacement September 01, 2018 Comparison: None. Findings: There is incidental fatty replaced lymph nodes seen in the right groin. Right lower extremity veins were imaged including the right common femoral vein greater saphenous vei n superficial femoral vein popliteal vein posterior tibial vein anterior tibial vein peroneal veins r evealing no evidence of intraluminal thrombi. The veins were compressible and demonstrated augmentat ion IMPRESSION: 1. No sonographic evidence DVT involving the right lower extremity veins Report Dictated By: Janice Díaz MD at 10/17/2018 4:00 PM Report E-Signed By: Janice Díaz MD at 10/17/2018 4:01 PM WSN:[id number]
== END ==
LOC: US 14:27
PROVIDERS: ATTEND Orthopaedic Surgery Hand Surgery
DX: R22.41 Localized swelling, mass and lump, right lower limb (principal); Z96.651 Presence of right artificial knee joint

== ENCOUNTER → 2018-12-27 | Outpatient (CLI) | payer MEDICARE, OTHER ==
[2018-09-02 09:04] VITALS: BMI 31.4
[2018-12-27 10:54] LABS: PLATELET COUNT, AUTOMATED 164 K/uL (150-450)
[2018-12-27 11:25] LABS: LDL CHOLESTEROL 73 mg/dl
== END ==
LOC: LAB 10:34
PROVIDERS: ATTEND Nurse Practitioner Family
DX: R73.01 Impaired fasting glucose (principal); R53.81 Other malaise; E87.8 Other disorders of electrolyte and fluid balance, not elsewhere classified; E78.00 Pure hypercholesterolemia, unspecified
CPT/HCPCS: 36415; 82040; 82247; 82310; 82374; 82435; 82465; 82565; 82947; 83036; 83718; 84075; 84132; 84155; 84295; 84450; 84460; 84478; 84520; 85025